=== PATIENT | male | born 1970 | race Caucasian/White ===

== ENCOUNTER 2019-10-31 21:51 | Emergency (ER) | payer BC ==
[~2019-10-31] VITALS: Ht 177.8 cm; Wt 90.7 kg
[~2019-10-31 21:51] MED LIST: ACETAMINOPHEN-1 EAC1 PO; CRESTOR; FISH OIL 1,0001 EAC9 PO; FLEXERIL PO; LORTAB 5 MG/5001 TA1 PO; NAPROSYN500 MG PO; NORFLEX100 MG PO; PERCOCET 5-3251 EACH PO; PHENERGAN 25 MG25 M1 PO; TRILIPIX135 MG PO; VITAMIN; ZESTRIL20 MG
[2019-10-31 22:37] LABS: URINE BILIRUBIN NEGATIVE (Negative); URINE BLOOD NEGATIVE (Negative); URINE CLARITY CLEAR; URINE COLOR YELLOW; URINE GLUCOSE-RANDOM NEGATIVE (Negative); URINE KETONES NEGATIVE (Negative); URINE LEUKOCYTES-REFLEX NEGATIVE (Negative); URINE NITRITE-REFLEX NEGATIVE (Negative); URINE PROTEIN NEGATIVE (Negative); URINE SPECIFIC GRAVITY 1.015 (1.005-1.030); URINE UROBILINOGEN 0.2 E.U./dl (0.2-1.0)
[2019-10-31 22:44] LABS: AMP/METHAMP Negative (Negative); BARBITURATES Negative (Negative); BENZODIAZEPINES Negative (Negative); COCAINE Negative (Negative); METHADONE Negative (Negative); OPIATES Negative (Negative); PCP Negative (Negative); THC Negative (Negative)
[2019-10-31 22:50] LABS: CALCIUM 8.4 mg/dL (8.5-10.1); CREATININE 1.1 mg/dL (0.6-1.3); POTASSIUM 3.3 mmol/L (3.5-5.1)
[2019-10-31 22:54] LABS: ALBUMIN 4.3 g/dL (3.4-5.0); TOTAL BILIRUBIN 1.7 mg/dL (<0.1-1.0); TOTAL PROTEIN 7.2 g/dL (6.4-8.2)
[2019-10-31 23:07] LABS: ABSOLUTE BASOPHILS 0.1 thou/uL (0.0-0.2); ABSOLUTE EOSINOPHILS 0.2 thou/uL (0.0-0.7); ABSOLUTE LYMPHOCYTES 2.3 thou/uL (0.8-5.3); ABSOLUTE MONOCYTES 0.7 thou/uL (0.0-1.2); ABSOLUTE NEUTROPHILS 7.9 thou/uL (1.6-8.1); BASOPHILS 0.6 %; EOSINOPHILS 1.6 %; HEMATOCRIT 46.1 % (42.0-52.0); HEMOGLOBIN 16.2 gm/dL (14.0-18.0); LYMPHOCYTES 20.9 %; MCHC 35.2 g/dL (28.0-37.0); MCV 96.6 fL (80.0-100.0); MONOCYTES 6.3 %; MPV 8.9 fl. (7.2-11.1); NUCLEATED RBCS 1 /100WBC; PLATELET COUNT* 235 thou/uL (150-400); POLYS 70.6 %; RBC 4.77 mil/uL (4.50-6.00); RDW-CV 12.7 % (10.5-14.5); WBC 11.2 thou/uL (4.0-11.0)
[2019-10-31] MEDS ORDERED: HYDROCODON-ACE1 EAC7 PO (23:44)
[2019-10-31] MEDS ORDERED: PROTONIX40 MG PO (23:44)
[2019-10-31] MEDS ORDERED: CARAFATE 1 GM TA1 GM PO (23:44)
[2019-11-01] MEDS ORDERED: ZOFRAN ODT4 MG PO (00:03)
[2019-11-01 01:27] VITALS: BP 112/72
[2019-11-01] MEDS ORDERED: FAMOTIDINE20 MG PO (10:31)
[2019-11-01] MEDS ORDERED: ZESTORETIC 20-1 EAC3 PO (15:31)
[2019-11-01] MEDS ORDERED: PRAVACHOL40 MG PO (15:32)
[2019-11-01] MEDS ORDERED: FAMOTIDINE 20 M20 MG PO (15:33)
[2019-11-01] MEDS ORDERED: GARLIC OIL1000 MG PO (15:34)
[2019-11-01] MEDS ORDERED: FLAXSEED1000 MG PO (15:34)
[2019-11-01] MEDS ORDERED: D3 PO (15:35)
--- NOTE | 2019-11-01 16:10 | EKG ---
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: [facility] : 1970 Requested By: Key May Order Number: [id number] MD: Reyes Rodriguez Measurements Intervals [place] Rate: 86 P: 69 CA: 149 QRS: -9 QRSD: 83 T: 52 QT: 357 QTc: 427 Interpretive Statements Sinus rhythm Probable left atrial enlargement Abnormal R-wave progression, early transition No previous ECG available for comparison Electronically Signed On 11-01-2019 16:10:28 CDT by Reyes Rodriguez [email or web address] <ELECTRONICALLY SIGNED> By: Reyes Rodriguez MD, [facility] 11/01/19 1610 25 Reyes Rodriguez MD, [facility] /EPI
== END 2019-11-01 01:30 | disposition home or self-care (01) ==
LOC: M.ERS 21:51
PROVIDERS: Personal Emergency Response Attendant
DX: K85.90 Acute pancreatitis without necrosis or infection, unspecified (principal); I10 Essential (primary) hypertension; E78.00 Pure hypercholesterolemia, unspecified; F17.210 Nicotine dependence, cigarettes, uncomplicated; Z79.899 Other long term (current) drug therapy

== ENCOUNTER 2019-11-01 07:18 | Inpatient (IN) | payer BC ==
[~2019-11-01] VITALS: Ht 177.8 cm; Wt 93.0 kg
[~2019-11-01 07:18] MED LIST changes: +CARAFATE 1 GM TA1 GM PO; +HYDROCODON-ACE1 EAC7 PO; +PROTONIX40 MG PO; +ZOFRAN ODT4 MG PO
[2019-11-01 07:27] VITALS: BP 144/96
[2019-11-01 07:43] LABS: HEMATOCRIT 43.8 % (42.0-52.0); HEMOGLOBIN 15.6 gm/dL (14.0-18.0); MCH 33.9 pg (26.0-34.0); MCHC 35.7 g/dL (28.0-37.0); MCV 94.8 fL (80.0-100.0); MPV 8.3 fl. (7.2-11.1); NUCLEATED RBCS 0 /100WBC; PLATELET COUNT* 175 thou/uL (150-400); RBC 4.62 mil/uL (4.50-6.00); RDW-CV 12.1 % (10.5-14.5)
[2019-11-01 07:58] LABS: CALCIUM 7.7 mg/dL (8.5-10.1); CREATININE 1.1 mg/dL (0.6-1.3); POTASSIUM 3.5 mmol/L (3.5-5.1)
[2019-11-01 08:03] LABS: TOTAL BILIRUBIN 1.5 mg/dL (<0.1-1.0); TOTAL PROTEIN 7.1 g/dL (6.4-8.2)
[2019-11-01 08:40] LABS: ABSOLUTE LYMPHOCYTES 1.5 thou/uL (0.8-5.3); ABSOLUTE MONOCYTES 0.5 thou/uL (0.0-1.2); ABSOLUTE NEUTROPHILS 13.1 thou/uL (1.6-8.1); PLATELET ESTIMATE ADEQUATE
[2019-11-01] MEDS ORDERED: FAMOTIDINE20 MG PO (10:31)
[2019-11-01 13:42] LABS: CALCIUM 7.9 mg/dL (8.5-10.1); CREATININE 0.8 mg/dL (0.6-1.3); MAGNESIUM 1.4 mg/dL (1.8-2.4); POTASSIUM 3.5 mmol/L (3.5-5.1)
[2019-11-01 15:16] VITALS: BP 147/100
[2019-11-01 15:28] VITALS: BP 142/92
[2019-11-01] MEDS ORDERED: ZESTORETIC 20-1 EAC3 PO (15:31)
[2019-11-01] MEDS ORDERED: PRAVACHOL40 MG PO (15:32)
[2019-11-01] MEDS ORDERED: FAMOTIDINE 20 M20 MG PO (15:33)
[2019-11-01] MEDS ORDERED: FLAXSEED1000 MG PO (15:34)
[2019-11-01] MEDS ORDERED: GARLIC OIL1000 MG PO (15:34)
[2019-11-01] MEDS ORDERED: D3 PO (15:35)
--- NOTE | 2019-11-01 16:13 | NUR ---
PATIENT ADMITTED TO ROOM 309 FROM ER. PATIENT WAS ASLEEP ON NURSES ARRIVAL TO ROOM. ALERT AND ORIENTED X 4 WHEN AWAKENED. UP AD KEVIN. IVF INFUSING. MG LEVEL 1.4, BEING REPLACED PER PROTOCOL. AT BEDSIDE, BROUGHT PATIENTS MEDICATIONS. THIS NURSE CHECKED MEDS WITH CURRENT CHARTING AND WILL TAKE MEDICATIONS BACK HOME. ORIENTED TO CALL LIGHT.
--- NOTE | 2019-11-01 16:14 | EKG ---
[place] [address] ELECTROCARDIOGRAM REPORT Name: JACOBY BELL Room: [address] ADM IN M.R.#: [id number] Admission: 11/01/19 Attend Phys: Manny St Discharge: Date of : 68 Date of Service: 11/01/19 0747 Report #: [id number] THIS REPORT FOR: //name// [facility] ED Test Date: 2019-11-01 Test Time: 07:47:40 Pat Name: JACOBY BELL Department: Room: [facility] Gender: M [employer]: ROBERT : 1970 Requested By: Hal Ramos Order Number: [id number] MD: Reyes Rodriguez Measurements Intervals [place] Rate: 84 P: 55 MO: 153 QRS: -5 QRSD: 87 T: 41 QT: 368 QTc: 436 Interpretive Statements Sinus rhythm Abnormal R-wave progression, early transition Baseline wander in lead(s) V3 No previous ECG available for comparison Electronically Signed On 11-01-2019 16:14:21 CDT by Reyes Rodriguez [email or web address] <ELECTRONICALLY SIGNED> By: Reyes Rodriguez MD, [facility] 11/01/19 1614 0747 [id number] Reyes Rodriguez MD, [facility] /EPI
[2019-11-01 19:30] VITALS: BP 132/81
[2019-11-02 04:50] LABS: ABSOLUTE LYMPHOCYTES 0.6 thou/uL (0.8-5.3); ABSOLUTE MONOCYTES 0.8 thou/uL (0.0-1.2); ABSOLUTE NEUTROPHILS 10.9 thou/uL (1.6-8.1); BASOPHILS 0.2 %; HEMATOCRIT 43.8 % (42.0-52.0); HEMOGLOBIN 15.6 gm/dL (14.0-18.0); LYMPHOCYTES 4.6 %; MCH 33.7 pg (26.0-34.0); MCHC 35.6 g/dL (28.0-37.0); MCV 94.6 fL (80.0-100.0); MONOCYTES 6.3 %; MPV 9.4 fl. (7.2-11.1); NUCLEATED RBCS 0 /100WBC; PLATELET COUNT* 164 thou/uL (150-400); POLYS 88.9 %; RBC 4.63 mil/uL (4.50-6.00); RDW-CV 12.6 % (10.5-14.5); WBC 12.2 thou/uL (4.0-11.0)
[2019-11-02 05:39] LABS: ALBUMIN 3.4 g/dL (3.4-5.0); CALCIUM 7.5 mg/dL (8.5-10.1); CREATININE 0.9 mg/dL (0.6-1.3); POTASSIUM 3.1 mmol/L (3.5-5.1); TOTAL BILIRUBIN 1.1 mg/dL (<0.1-1.0)
--- NOTE | 2019-11-02 07:26 | NUR ---
PT WAS RESTLESS MOST OF THE NIGHT ONLY SLEEPING 1-2 HRS. PAIN 8/10 MOST OF THE NIGHT WITH FENTANYL RELIEVING PAIN ONLY FOR A SHORT TIME, WE DID TRY TO SEE IF ZOFRAN WOULD HELP RELIEVE SOME PAIN AND PT STATES IT DID MILDLY, HE STATES THAT HE DID FEEL SOME BETTER TODAY BUT WAS SWEATY MOST OF THE NIGHT AND FELT DIRTY. FLUIDS INFUSING PER ORDER. PT HAS AMBULATED TO TOILET INDEPENDENTLY. TM
[2019-11-02 07:54] VITALS: BP 129/87
--- NOTE | 2019-11-02 09:48 | NUR ---
Pt is A&O. Here from [place] visiting family. Resides at home with . Independent and active. No DME. No hx of HH or SNF. Goal is home at [place], no needs anticipated.
--- NOTE | 2019-11-02 16:07 | NUR ---
PRN PAIN MEDICATION GIVEN PER PT REQUESTS. IVF INFUSING. SHOWERED TODAY.
[2019-11-02 19:36] VITALS: BP 136/93
[2019-11-03 13:01] LABS: URINE BLOOD TRACE (Negative); URINE CLARITY CLEAR; URINE COLOR ORANGE; URINE GLUCOSE-RANDOM NEGATIVE (Negative); URINE KETONES TRACE (Negative); URINE LEUKOCYTES-REFLEX NEGATIVE (Negative); URINE NITRITE-REFLEX NEGATIVE (Negative); URINE PROTEIN 2+ (Negative)
[2019-11-03 13:03] LABS: ICTOTEST (BILI CONFIRMATORY) Negative (Negative); URINE BILIRUBIN 1+ (Negative)
[2019-11-03 13:11] LABS: BACTERIA-REFLEX 1-9 Few /HPF (None Seen); CASTS None Seen /LPF (None Seen); CRYSTALS None Seen /LPF (None Seen); MUCUS 4-6 Moderate strn/LPF (None Seen); SQUAMOUS 4-10 Moderate /LPF (0-3); URINE RBC 0-2 Rare /HPF (0-2); URINE WBC-REFLEX 0-5 Rare /HPF (0-5)
[2019-11-03 16:00] VITALS: BP 127/84
--- NOTE | 2019-11-03 18:55 | NUR ---
PT A&OX4 VSS. PT DIET REMAINS NPO THIS SHIFT. ALLOWED SIPS WITH MEDS. IV FLUIDS AND ABX CONTINUE. PT UP AD KEVIN, GAIT STEADY. PRN FENTANYL Q2H, ADMINISTERED DIRECTED UPON PT REQUEST. PT DENIES N/V. PT MAY POSSIBLY DC TO HOME TOMORROW. PT RESTS IN BED WITH CALL IGHT IN REACH, WILL CONTINUE TO MONITOR.
[2019-11-03 20:00] VITALS: BP 133/84
[2019-11-04 09:33] LABS: HEMATOCRIT 35.8 % (42.0-52.0); MCH 34.4 pg (26.0-34.0); MCHC 35.8 g/dL (28.0-37.0); MCV 96.2 fL (80.0-100.0); MPV 8.8 fl. (7.2-11.1); RBC 3.72 mil/uL (4.50-6.00); RDW-CV 12.8 % (10.5-14.5); WBC 7.4 thou/uL (4.0-11.0)
[2019-11-04 09:36] LABS: HEMOGLOBIN 12.8 gm/dL (14.0-18.0)
[2019-11-04 09:43] LABS: ALBUMIN 2.4 g/dL (3.4-5.0); CALCIUM 8.4 mg/dL (8.5-10.1); CREATININE 0.8 mg/dL (0.6-1.3); MAGNESIUM 1.8 mg/dL (1.8-2.4); POTASSIUM 3.2 mmol/L (3.5-5.1); TOTAL BILIRUBIN 0.8 mg/dL (<0.1-1.0); TOTAL PROTEIN 6.5 g/dL (6.4-8.2)
[2019-11-04 16:00] VITALS: BP 137/90
--- NOTE | 2019-11-04 18:53 | NUR ---
PT A&OX4 VSS. PT DIET ADVANCED TO LIQUIDS, PT TOLERATES WELL. PT CONTINUE TO REQUEST IV PAIN MEDICATION REGULARLY. PT REPORTED BM THIS SHIFT. PT UP TO SHOWER INDEPENDENTLY. IV TO LAC PATENT, DRESSING C/D/I. PT RESTS IN BED WITH CALL LIGHT IN REACH, WILL CONTINUE TO MONITOR
[2019-11-04 20:00] VITALS: BP 133/91
--- NOTE | 2019-11-05 00:49 | NUR ---
PT STARTED ON CLEAR LIQUID DIET DURING DAY SHIFT. PT REPORTS PAIN RELATED TO THIS. PT STATES HE WAS IRRITABLE DUE TO NOT EATING BUT HAVING MORE PAIN A RESULT. DR HANDY NOTIFIED AT START OF SHIFT. FENTANYL DISCONTINUED, IV MORPHINE STARTED. DR HANDY NOTIFIED AGAIN DUE TO INEFFECTIVE PAIN RELIEF. MORPHINE CHANGED TO EVERY 2 HRS PRN.
[2019-11-05 07:55] VITALS: BP 131/79
[2019-11-05 11:43] LABS: ABSOLUTE EOSINOPHILS 0.2 thou/uL (0.0-0.7); ABSOLUTE LYMPHOCYTES 1.3 thou/uL (0.8-5.3); BASOPHILS 0.4 %; EOSINOPHILS 1.9 %; HEMATOCRIT 34.7 % (42.0-52.0); HEMOGLOBIN 12.5 gm/dL (14.0-18.0); MCH 34.3 pg (26.0-34.0); MCV 95.3 fL (80.0-100.0); MONOCYTES 11.5 %; MPV 8.6 fl. (7.2-11.1); NUCLEATED RBCS 0 /100WBC; PLATELET COUNT* 181 thou/uL (150-400); POLYS 71.2 %; RBC 3.64 mil/uL (4.50-6.00); RDW-CV 12.6 % (10.5-14.5); WBC 8.5 thou/uL (4.0-11.0)
[2019-11-05 11:47] LABS: CALCIUM 8.4 mg/dL (8.5-10.1); CREATININE 0.8 mg/dL (0.6-1.3)
[2019-11-05 11:52] LABS: ALBUMIN 2.6 g/dL (3.4-5.0); TOTAL BILIRUBIN 0.8 mg/dL (<0.1-1.0); TOTAL PROTEIN 6.7 g/dL (6.4-8.2)
[2019-11-05 12:40] VITALS: BP 131/79
--- NOTE | 2019-11-05 13:26 | NUR ---
PATIENT REQUESTING PAIN MEDICATION AFTER CLEARS THIS AM. PRN OXY IR GIVEN WITH GOOD RELIEF NOTED. AM LABS DRAWN AND DR. GRANT NOTIFIED. POTASSIUM REPLACED PRIOR TO DISCHARGE. PATIENT OK TO DISCHARGE PER DR. GRANT. PATIENT NOTIFIED TO FIND PCP AND FOLLOW UP. IV DC'D. VERBALIZES UNDERSTANDING OF PAPERWORK NO SCRIPT. PATIENT AMBULATED OUT WITH AND NURSING STAFF.
== END 2019-11-05 13:00 | disposition home or self-care (01) | DRG 439 ==
LOC: M.ERS 07:18 → M.TBA-ER 09:06 → M.3W 09:06
PROVIDERS: Family Medicine; Internal Medicine; ADMIT Internal Medicine; ATTEND Internal Medicine
DX: K85.20 Alcohol induced acute pancreatitis without necrosis or infection (principal); K56.7 Ileus, unspecified; E87.1 Hypo-osmolality and hyponatremia; R65.10 Systemic inflammatory response syndrome (SIRS) of non-infectious origin without acute organ dysfunction; K86.3 Pseudocyst of pancreas; I10 Essential (primary) hypertension; E78.00 Pure hypercholesterolemia, unspecified; F17.210 Nicotine dependence, cigarettes, uncomplicated; E78.5 Hyperlipidemia, unspecified; K21.9 Gastro-esophageal reflux disease without esophagitis; I71.4 Abdominal aortic aneurysm, without rupture; R73.9 Hyperglycemia, unspecified; E80.6 Other disorders of bilirubin metabolism; Z20.828 Contact with and (suspected) exposure to other viral communicable diseases; Z79.899 Other long term (current) drug therapy